=== PATIENT | male | born 1945 | race Caucasian/White ===

== ENCOUNTER 2024-02-04 15:53 | Outpatient (CLI) | payer MEDICARE | END 2024-02-04 15:54 | disposition home or self-care (01) | LOC: BICCT 15:53 | PROVIDERS: ATTEND Radiology Radiation Oncology | DX: Z12.2 Encounter for screening for malignant neoplasm of respiratory organs (principal); F17.210 Nicotine dependence, cigarettes, uncomplicated; R91.8 Other nonspecific abnormal finding of lung field; I25.10 Atherosclerotic heart disease of native coronary artery without angina pectoris; E27.8 Other specified disorders of adrenal gland; R93.7 Abnormal findings on diagnostic imaging of other parts of musculoskeletal system | CPT/HCPCS: 71271 ==

== ENCOUNTER 2024-02-19 12:30 | Outpatient (CLI) | payer MEDICARE | END 2024-02-19 12:31 | disposition home or self-care (01) | LOC: PET 12:30 | PROVIDERS: ATTEND Radiology Radiation Oncology | DX: R91.8 Other nonspecific abnormal finding of lung field (principal); I71.43 Infrarenal abdominal aortic aneurysm, without rupture | CPT/HCPCS: 78815; A9552 ==

== ENCOUNTER 2024-05-20 09:46 | Outpatient (CLI) | payer MEDICARE ==
[2024-05-20] MEDS ORDERED: Iopamidol 370 76% 100 ML VIAL ONE (10:42)
== END 2024-05-20 09:47 | disposition home or self-care (01) ==
LOC: CT 09:46
PROVIDERS: ATTEND Radiology Radiation Oncology
DX: R91.1 Solitary pulmonary nodule (principal); C61 Malignant neoplasm of prostate; J98.4 Other disorders of lung
CPT/HCPCS: 36415; 71260; 82565; Q9967